=== PATIENT | female | born 1945 | race Two or more races ===

== ENCOUNTER 2016-10-24 18:03 | Inpatient (IN) | payer OTHER, MEDICAID ==
[~2016-10-24] VITALS: Ht 154.9 cm; Wt 53.5 kg
[2016-10-25] VITALS: BP 163/89
[2016-10-25] MEDS ORDERED: ACETAMINOPHEN 325 MG TABLET PO PRN (00:30)
[2016-10-25] MEDS ORDERED: MAGNESIUM HYDROXIDE 30 ML UDC PO PRN (00:30)
[2016-10-25] MEDS ORDERED: MAG HYDROX/AL HYDROX/SIMETH 30 ML UDC PO PRN (00:30)
[2016-10-25] MEDS ORDERED: LORAZEPAM 0.5 MG TABLET PO PRN (00:30)
[2016-10-25] MEDS ORDERED: ATOR20TA PO (00:36)
[2016-10-25] MEDS ORDERED: ENOX40DI9 SQ (00:36)
[2016-10-25] MEDS ORDERED: DOCU-170 PO (00:36)
[2016-10-25] MEDS ORDERED: SENN8.6T6 PO (00:36)
--- NOTE | 2016-10-25 03:48 | NUR ---
GPS CLIENT RELATIONSHIP MANAGER NOTES ADMITTED THIS 71 YEAR OLD FEMALE ON VOLUNTARY ADMISSION. [facility] ON A HOLD FOR BIZARRE BEHAVIORS. PATIENT HAS NOT BEEN TAKING MEDICATION FOR 3 WEEKS. WITH HISTORY OF PARANOID SCHIZOPHRENIA. UPON FACE TO FACE, PATIENT WAS PARANOID BUT COOPERATIVE. GUARDED, RESTLESS AND ANXIOUS. VITAL SIGNS CHECKED AND RECORDED. AFEBRILE. ASSESSMENT OF BODY SYSTEMS COMPLETED. SKIN CHECK DONE. NO SKIN ISSUES NOTED. PATIENTS BELONGINGS CHECKED FOR CONTRABAND ITEMS. CONTRABAND ITEMS PLACED IN CONTRABAND LOCKER. MRSA SWAB DONE. PATIENT ADMITTED UNDER THE CARE OF DR. VANCE FOR PSYCHE AND CHRIS VERA FOR MEDICAL. ON FULL CODE. NO KNOWN ALLERGIES NOTED. PATIENT IS AMBULATORY. ALERT AND ORIENTED X 3. PATIENT MADE COMFORTABLE IN BED. WILL MONITOR FOR SAFETY AND BEHAVIORS. Addendum: 10/26/16 at 0538 by MELECIO NAVARRO RN PATIENT SIGNED VOLUNTARY BUT PATIENT IS ON A 5250 HOLD FOR GRAVE DISABILITY.
[2016-10-25 08:26] VITALS: BP 110/67
[2016-10-25] MEDS ORDERED: SENNOSIDES 8.6 MG TABLET PO PRN (09:00)
[2016-10-25] MEDS ORDERED: DOCUSATE SODIUM 100 MG CAPSULE PO PRN (09:00)
[2016-10-25 16:00] VITALS: BP 114/74
[2016-10-25 20:00] VITALS: BP 110/64
[2016-10-25] MEDS: MIRTAZAPINE 15 MG TABLET PO SCH (21:38)
[2016-10-25] MEDS: ATORVASTATIN 10 MG TABLET PO SCH (21:38)
[2016-10-25] MEDS: TEMAZEPAM 7.5 MG CAPSULE PO PRN (21:38)
[2016-10-25] MEDS ORDERED: QUETIAPINE FUMARATE 25 MG TABLET PO SCH (22:00)
[2016-10-26 06:59] LABS: BASOPHILS # (AUTO) 0.1 /CMM (0.0-0.2); BASOPHILS % (AUTO) 0.8 % (0.0-2.0); EOSINOPHILS # (AUTO) 0.2 /CMM (0.0-0.7); EOSINOPHILS % (AUTO) 3.7 % (0.0-6.0); HEMATOCRIT 44 % (33-45); HEMOGLOBIN 14.5 g/dL (11.5-14.8); LYMPHOCYTES # (AUTO) 2.2 /CMM (0.8-4.8); LYMPHOCYTES % (AUTO) 33.1 % (20.0-44.0); MEAN CORPUSCULAR HEMOGLOBIN 30 PG (26.0-33.0); MEAN CORPUSCULAR HGB CONC 33 g/dl (31.0-36.0); MEAN CORPUSCULAR VOLUME 92 fL (82-100); MONOCYTES # (AUTO) 0.6 /CMM (0.1-1.30); MONOCYTES % (AUTO) 9.2 % (2.0-12.0); NEUTROPHILS # (AUTO) 3.6 /CMM (1.8-8.9); NEUTROPHILS % (AUTO) 53.2 % (43.0-81.0); PLATELET COUNT (AUTO) 254 /CMM (150-450); RDW COEFFICIENT OF VARIATION 12.7 (11.5-15.0); RED BLOOD CELL COUNT(AUTO) 4.79 MIL/uL (4.0-5.2); WHITE BLOOD COUNT (AUTO) 6.7 K/uL (4.3-11.0)
[2016-10-26 07:36] LABS: ALBUMIN 3.4 g/dL (3.4-5.0); BILIRUBIN,TOTAL 0.4 mg/dL (0.2-1.0); CALCIUM, SERUM 8.7 mg/dL (8.5-10.1); CREATININE 0.9 mg/dL (0.6-1.3); POTASSIUM 4.9 mmol/L (3.5-5.1); TOTAL PROTEIN, SERUM 6.9 g/dL (6.4-8.2)
[2016-10-26 08:00] VITALS: BP 103/71
[2016-10-26 16:00] VITALS: BP 132/83
[2016-10-26 20:14] VITALS: BP 134/79
[2016-10-26] MEDS: ATORVASTATIN 10 MG TABLET PO SCH (21:35)
[2016-10-26] MEDS: MIRTAZAPINE 15 MG TABLET PO SCH (21:35)
[2016-10-26] MEDS: QUETIAPINE FUMARATE 25 MG TABLET PO SCH (21:35)
--- NOTE | 2016-10-27 00:55 | NUR ---
Pt has been isolative & withdrawn but compliant & redirectable.
[2016-10-27 08:00] VITALS: BP 121/74
[2016-10-27 16:00] VITALS: BP 118/62
--- NOTE | 2016-10-27 16:47 | NUR ---
Initial discharge plan: Pt. is homeless and will need placement if pt. agrees. SW will follow up with MD and pt. and will help form safe and proper discharge.
--- NOTE | 2016-10-27 17:06 | NUR ---
UR update: Faxed clinicals (H&Ps, facesheet, [phone], updated clinicals, med list) to [facility] [phone], phone [phone] TRACKING# [id number]
[2016-10-27 19:52] VITALS: BP 104/64
[2016-10-27] MEDS: MIRTAZAPINE 15 MG TABLET PO SCH (21:16)
[2016-10-27] MEDS: QUETIAPINE FUMARATE 25 MG TABLET PO SCH (21:16)
[2016-10-27] MEDS: ATORVASTATIN 10 MG TABLET PO SCH (21:16)
[2016-10-27] MEDS: TEMAZEPAM 7.5 MG CAPSULE PO PRN (21:17)
[2016-10-28 08:30] VITALS: BP 116/76
--- NOTE | 2016-10-28 15:54 | NUR ---
SW spoke with the patient again but no correct information has been provided. Pt. states she earns as she goes and starts rambling when asked questions about her income.
[2016-10-28 16:00] VITALS: BP 117/50
[2016-10-28 20:51] VITALS: BP 106/69
[2016-10-28] MEDS: MIRTAZAPINE 15 MG TABLET PO SCH (21:01)
[2016-10-28] MEDS: QUETIAPINE FUMARATE 25 MG TABLET PO SCH (21:01)
[2016-10-28] MEDS: ATORVASTATIN 10 MG TABLET PO SCH (21:05)
[2016-10-29 08:00] VITALS: BP 128/52
[2016-10-29] MEDS: QUETIAPINE FUMARATE 25 MG TABLET PO SCH ×2 (08:49→21:25)
[2016-10-29 15:49] VITALS: BP 132/73
--- NOTE | 2016-10-29 16:53 | NUR ---
SW was able to confirm pt's living situation. Pt. is a resident at [facility] [place] [phone] fax [phone] and will return back.
--- NOTE | 2016-10-29 17:27 | NUR ---
UR update: Faxed clinicals (updated clinicals, med list) to [facility] [phone], phone [phone] TRACKING# [id number]
[2016-10-29 20:00] VITALS: BP 134/67
[2016-10-29] MEDS: ATORVASTATIN 10 MG TABLET PO SCH (21:25)
[2016-10-29] MEDS: MIRTAZAPINE 15 MG TABLET PO SCH (21:25)
[2016-10-30] MEDS: QUETIAPINE FUMARATE 25 MG TABLET PO SCH (08:08)
[2016-10-30 08:21] VITALS: BP 113/56
--- NOTE | 2016-10-30 10:00 | NUR ---
GPS RN: RECEIVED AN ORDER FROM DR. VANCE TO DISCONTINUE HOLD AND DISCHARGE PATIENT TO [facility] [[address] [place] [address]
--- NOTE | 2016-10-30 13:30 | NUR ---
GPS RN: PRESCRIPTIONS FAXED TO [facility] (TEL: [phone]; FAX: [phone]). CONFIRMED RECEIPT WITH PHARMACIST MARY. Addendum: 10/30/16 at 1410 by ANNABELLE CONNER RN PER MARY, THEY WILL DELIVER MEDICATIONS TONIGHT TO [facility].
[2016-10-30 15:31] VITALS: BP 146/69
--- NOTE | 2016-10-30 16:39 | NUR ---
Discharge note: discharge back [facility] [place] [id number] [facility] [address] fax [phone] via [employer]. Pharmacy phone number is [phone] fax [phone]. Pt. needs RX. Pt. will be transferred by [employer]. Pt. will be picked up around 6:00PM. Pt. has no family to notify. Pt. will follow up with Dr. Miriam Cooper on November 02Thursday 11:[address] [place] [id number] . Therapist, Wai Hernadez 2049 and pt. was notified to call and make an appointment. Address is [address] [facility] [address] . Discharge paperwork has been singed.
--- NOTE | 2016-10-30 16:41 | NUR ---
UR update: Faxed discharge information to [facility] [phone], phone [phone] TRACKING# [id number]
--- NOTE | 2016-10-30 17:50 | NUR ---
GPS RN: PATIENT DISCHARGED TO [facility]. PATIENT'S CONDITION IS STABLE FOR DISCHARGE, VS STABLE. PATIENT DENIES SI/HI/AVH. ALL BELONGINGS RETURNED TO THE PATIENT. EDUCATIONAL EXIT CARE PRINTED, SIGNED AND PROVIDED TO THE PATIENT. PATIENT LEFT THE UNIT ACCOMPANIED BY ASHUTOSH GARRISON FROM [employer] [facility].
== END 2016-10-30 17:50 | disposition home or self-care (01) | DRG 885 ==
LOC: GPS 23:47
PROVIDERS: ADMIT Psychiatry & Neurology Psychosomatic Medicine; ATTEND Family Medicine
DX: F20.9 Schizophrenia, unspecified (principal); F29 Unspecified psychosis not due to a substance or known physiological condition; E78.5 Hyperlipidemia, unspecified; I10 Essential (primary) hypertension; Z59.0 Homelessness; F17.210 Nicotine dependence, cigarettes, uncomplicated; F32.9 Major depressive disorder, single episode, unspecified; G47.00 Insomnia, unspecified
CPT/HCPCS: 36415; 80053-TC; 85025-TC; 87081-TC